=== PATIENT | male | born 1955 | race Caucasian/White ===

== ENCOUNTER 2019-09-21 06:07 | Inpatient (IN) ==
[2019-09-21] MEDS ORDERED: CeFAZolin Syr 2,000MG/20 ML 2,000 MG/20 ML SYRINGE IVPB ONE (06:29)
[2019-09-21] MEDS ORDERED: Ringers Solution, Lactated 1,000 ML IVC SCH (06:30)
[2019-09-21] MEDS ORDERED: Lidocaine HCL 4 ML Topical Solution (Laryng-O-Jet Kit Sterile Pak) TP ONE (06:30)
[2019-09-21] MEDS ORDERED: *HR* Heparin 5,000 UNIT/ML VIAL ONE (06:38)
[2019-09-21] MEDS ORDERED: *HR* Phenylephrine 10 MG/ML VIAL ONE (06:39)
[2019-09-21] MEDS ORDERED: *HR* Rocuronium Bromide 50 MG/5 ML VIAL ONE (06:39)
[2019-09-21] MEDS ORDERED: Ondansetron 4 MG/2 ML VIAL ONE (06:39)
[2019-09-21] MEDS ORDERED: Dexamethasone 4 MG/ML VIAL ONE (06:39)
[2019-09-21] MEDS ORDERED: Lidocaine -MPF 2% 2 ML VIAL ONE (06:39)
[2019-09-21] MEDS ORDERED: *HR* Propofol 200 MG/20 ML VIAL IVP ONE (06:40)
[2019-09-21] MEDS ORDERED: *HR* PHENYLEPHRINE 1,000 MCG/10 ML SYRINGE IVP ONE (06:40)
[2019-09-21] MEDS ORDERED: *HR* FentaNYL (PF) 100 MCG/2 ML VIAL ONE (06:53)
[2019-09-21] MEDS ORDERED: *HR* Midazolam HCl 2 MG/2 ML VIAL ONE (06:54)
[2019-09-21] MEDS ORDERED: Albuterol 2.5 MG/3 ML NEBULIZER IH ONE (06:58)
[2019-09-21] MEDS ORDERED: Nitroglycerin 0 MG/0 ML INFUS..BTL IVC ONE (07:05)
[2019-09-21] MEDS ORDERED: *HR* Nitroprusside 50 MG VIAL IVC ONE (07:05)
[2019-09-21] MEDS ORDERED: *HR* HYDROmorphone (PF) 1 MG/ML SYRINGE IVP PRN (07:11)
[2019-09-21] MEDS ORDERED: *HR* OxyCODONE Immed Rel 5 MG TABLET PO PRN ×3 (07:11→12:37)
[2019-09-21] MEDS ORDERED: Ondansetron 4 MG/2 ML VIAL IVP ONE (07:11)
[2019-09-21] MEDS ORDERED: Famotidine 20 MG/2 ML VIAL IVP ONE (07:11)
[2019-09-21] MEDS ORDERED: *HR* Promethazine 25 MG/ML VIAL IVP PRN (07:11)
[2019-09-21] MEDS ORDERED: *HR* Labetalol 20 MG/4 ML SYRINGE IVP PRN ×2 (07:11→12:37)
[2019-09-21] MEDS ORDERED: Albuterol 2.5 MG/3 ML NEBULIZER IH PRN (07:11)
[2019-09-21] MEDS ORDERED: Acetaminophen IV 1,000 MG/100 ML INFUS..BTL IVPB ONE (07:11)
[2019-09-21] MEDS ORDERED: Bupivacaine-MPF 0.25% 10 ML VIAL ONE (07:17)
[2019-09-21] MEDS ORDERED: Heparin 1,000 UNITS/500 mL 500 ML ONE ×2 (07:17→07:18)
[2019-09-21] MEDS ORDERED: Protamine Sulfate 50 MG/5 ML VIAL IVP ONE (07:17)
[2019-09-21] MEDS ORDERED: *HR* Remifentanil 1 MG VIAL IVP ONE ×2 (07:22)
[2019-09-21] MEDS ORDERED: Aspirin 81 MG TAB.CHEW PO ONE (07:31)
[2019-09-21] MEDS ORDERED: *HR* Succinylcholine 200 MG/10 ML VIAL IVP ONE (07:51)
[2019-09-21] MEDS ORDERED: Vancomycin 1,000 MG, Sodium Chloride IRRigation 1,000 ML IR ONE (11:10)
[2019-09-21] MEDS ORDERED: Naloxone 0.4 MG/ML INJ IVP PRN (12:37)
[2019-09-21] MEDS ORDERED: D5% in Water 1,000 ML IVC PRN (12:37)
[2019-09-21] MEDS ORDERED: *HR* Dextrose 50 % in Water (Syg) 50 ML SYRINGE IVP PRN (12:37)
[2019-09-21] MEDS ORDERED: Acetaminophen 325 MG TABLET PO PRN ×2 (12:37)
[2019-09-21] MEDS ORDERED: Ondansetron 4 MG/2 ML VIAL IVP PRN (12:37)
[2019-09-21] MEDS ORDERED: Dextrose Gel 15 GM/37.5 ML TUBE PO PRN ×2 (12:37)
[2019-09-21] MEDS ORDERED: 0.9 % Sodium Chloride 1,000 ML IVC SCH (12:37)
[2019-09-21] MEDS ORDERED: *HR* HYDROcodone/Acet 5/325 mg TABLET PO PRN ×2 (12:37)
[2019-09-21] MEDS: *HR* Metoprolol 5 MG/5 ML VIAL IVP SCH ×3 (16:07→23:34)
[2019-09-21] MEDS ORDERED: 0.9 % Sodium Chloride 500 ML IVC SCH (16:30)
[2019-09-21] MEDS: Insulin LISPRO 300 UNITS/3 ML VIAL SQ SCH ×2 (16:32→16:40)
[2019-09-21] MEDS ORDERED: Insulin LISPRO 300 UNITS/3 ML VIAL SQ SCH (21:00)
[2019-09-22] MEDS: *HR* Metoprolol 5 MG/5 ML VIAL IVP SCH (05:16)
[2019-09-22] MEDS ORDERED: *HR* Heparin 5,000 UNIT/ML VIAL SQ SCH ×2 (06:00)
[2019-09-22 07:19] VITALS: BP 131/69
[2019-09-22] MEDS: Insulin LISPRO 300 UNITS/3 ML VIAL SQ SCH (08:02)
[2019-09-22] MEDS ORDERED: Cholecalciferol (D-3) 1,000 UNIT (25MCG) TABLET PO SCH (09:00)
[2019-09-22] MEDS ORDERED: Aspirin Enteric Coated 81 MG Tablet PO SCH (09:00)
[2019-09-22] MEDS ORDERED: carvediloL 6.25 MG TABLET PO SCH (09:00)
== END 2019-09-22 09:40 | disposition home or self-care (01) | DRG 39 ==
LOC: SAMDAY 06:07 → 2NNU 12:22
PROVIDERS: ADMIT Surgery; ATTEND Surgery